=== PATIENT | male | born 1990 | race Caucasian/White ===

== ENCOUNTER → 2017-01-09 07:55 | Outpatient (CLI) | payer MEDICAID ==
[2017-01-09 09:04] LABS: ALBUMIN 4.1 g/dL (3.4-5.0); BILIRUBIN - DIRECT 0.17 mg/dL (0.00-0.30); BILIRUBIN - INDIRECT 0.53 mg/dL (0.00-1.00); BILIRUBIN - TOTAL 0.7 mg/dL (0.2-1.3); PROTEIN - SERUM 7.5 g/dL (6.4-8.2)
== END | disposition home or self-care (01) ==
LOC: D.US 07:55
PROVIDERS: Internal Medicine Gastroenterology
DX: K76.0 Fatty (change of) liver, not elsewhere classified (principal)

== ENCOUNTER → 2017-07-15 09:07 | Outpatient (CLI) | payer MEDICAID ==
[2017-07-15 09:51] LABS: ALBUMIN 3.6 g/dL (3.4-5.0); BILIRUBIN - DIRECT 0.12 mg/dL (0.00-0.30); BILIRUBIN - INDIRECT 0.38 mg/dL (0.00-1.00); BILIRUBIN - TOTAL 0.5 mg/dL (0.2-1.3); PROTEIN - SERUM 6.6 g/dL (6.4-8.2)
== END | disposition home or self-care (01) ==
LOC: D.US 09:07
PROVIDERS: Internal Medicine Gastroenterology
DX: K76.0 Fatty (change of) liver, not elsewhere classified (principal)

== ENCOUNTER 2018-12-27 06:34 | Emergency (ER) | payer MEDICARE ==
[~2018-12-27] VITALS: Ht 177.8 cm; Wt 108.9 kg
[2018-12-27 06:40] VITALS: Ht 177.8 cm; Wt 108.9 kg
[2018-12-27] MEDS ORDERED: TENORMIN50 MG PO (06:42)
[2018-12-27] MEDS ORDERED: PEPCID40 MG PO (06:43)
[2018-12-27] MEDS ORDERED: HYDROCODON-ACE1 EA10 PO (06:43)
[2018-12-27] MEDS ORDERED: PHENERGAN25 M1 (06:43)
[2018-12-27] MEDS ORDERED: VALIUM10 MG PO (06:43)
[2018-12-27 07:06] LABS: BASOPHILS 0.1 % (0-2); EOSINOPHILS 0 % (0-7); HEMOGLOBIN 15.9 g/dL (13.5-17.5); IMMATURE GRANULOCYTES 0.1 % (0-5); LYMPHOCYTES 10.7 % (15-50); MCH 30.1 pg (26.0-34.0); MCHC 34.6 g/dL (31.0-37.0); MEAN PLATELET VOLUME 10.6 fL (7.4-10.4); MONOCYTES 1.7 % (2-11); NEUTROPHILS 87.4 % (40-80); PLATELET COUNT 248 10x3/uL (130-400); RBC 5.29 10x6/uL (4.20-6.10); RDW 12.4 % (11.5-14.5); WBC 13.8 10x3/uL (4.8-10.8)
[2018-12-27 07:31] LABS: ALBUMIN 4.3 g/dL (3.4-5.0); ALKALINE PHOSPHATASE 57 U/L (46-116); ALT (SGPT) 136 U/L (10-68); AMYLASE - SERUM 33 U/L (25-115); BILIRUBIN - TOTAL 0.58 mg/dL (0.2-1.3); CALC OSMOLALITY 280 mosm/kg (275-300); CALCIUM 8.8 mg/dL (8.5-10.1); CARBON DIOXIDE 24.5 mmol/L (21.0-32.0); CHLORIDE - SERUM 103 mmol/L (98-107); CREATININE - SERUM 1.2 mg/dL (0.6-1.3); GLUCOSE 126 mg/dL (74-106); LIPASE 54 U/L (73-393); POTASSIUM - SERUM 3.8 mmol/L (3.5-5.1); PROTEIN - SERUM 8.2 g/dL (6.4-8.2); SODIUM 140 mmol/L (136-145); UREA NITROGEN 13 mg/dL (7-18); eGFR NON AFRICAN AMERICAN 75 mL/min (90-120)
[2018-12-27 09:03] LABS: APPEARANCE CLEAR (CLEAR); BILIRUBIN NEGATIVE (NEGATIVE); COLOR YELLOW (YELLOW); GLUCOSE NEGATIVE (NEGATIVE); KETONE NEGATIVE (NEGATIVE); NITRITE NEGATIVE (NEGATIVE); PROTEIN NEGATIVE (NEGATIVE); UROBILINOGEN NORMAL (NORMAL)
[2018-12-27 09:05] LABS: BACTERIA FEW /hpf (NONE SEEN); EPITHELIAL CELLS 0-5 /hpf (0-5); RED CELLS - URINE 0-5 /hpf (0-5); WHITE CELLS - URINE 0-5 /hpf (0-5)
[2018-12-27] MEDS ORDERED: ZOFRAN ODT4 MG/UDTAB PO (09:20)
[2018-12-27 09:39] VITALS: BP 126/78
== END 2018-12-27 09:40 | disposition home or self-care (01) ==
LOC: D.ER 06:34
PROVIDERS: Family Medicine
DX: K52.9 Noninfective gastroenteritis and colitis, unspecified (principal)